=== PATIENT | male | born 1990 | race Caucasian/White ===

== ENCOUNTER 2022-03-04 02:08 | Emergency (ER) | payer OTHER ==
[~2022-03-04] VITALS: Ht 177.8 cm; Wt 95.2 kg
[2022-03-04] MEDS ORDERED: ALBU90OI INH (02:46)
[2022-03-04] MEDS ORDERED: Prednisone10 MG PO (02:47)
== END 2022-03-04 04:24 | disposition home or self-care (01) ==
LOC: ER 02:08
DX: J45.901 Unspecified asthma with (acute) exacerbation (principal)
CPT/HCPCS: 71046; 94644; 94664; 99285-25; A9270; J7512